=== PATIENT | female | born 1940 | race African-American/Black ===

== ENCOUNTER 2016-12-05 14:23 | Outpatient (CLI) | payer OTHER ==
[2016-12-05 14:33] LABS: BASOPHILS % (AUTO) 0.5 % (0.0-3.0); EOSINOPHILS # (AUTO) 0.3 K/ul (0.0-0.7); EOSINOPHILS % (AUTO) 3.2 % (0.0-7.0); HEMATOCRIT 22.9 % (37.0-47.0); HEMOGLOBIN 7.2 g/dl (12.0-16.0); IMMATURE GRANULOCYTE % (AUTO) 0.7 % (0.0-5.0); LYMPHOCYTES # (AUTO) 1.2 K/uL (0.60-3.4); LYMPHOCYTES % (AUTO) 14.8 (10.0-50.0); MEAN CORPUSCULAR HEMOGLOBIN 27.7 pg (27.0-31.0); MEAN CORPUSCULAR HGB CONC 31.4 (31.8-35.4); MEAN CORPUSCULAR VOLUME 88.1 fl (81.0-99.0); MONOCYTES # (AUTO) 0.8 K/uL (0.4-2.0); MONOCYTES % (AUTO) 10.2 (0-10); NEUTROPHILS # (AUTO) 5.8 K/ul (2.0-6.9); NEUTROPHILS % (AUTO) 70.6; PLATELET COUNT 217 10^3/uL (140-440); WHITE BLOOD COUNT 8.25 K/ul (4.6-10.2)
[2016-12-05 14:47] LABS: ALBUMIN 1.8 g/dL (3.4-5.0); ALBUMIN/GLOBULIN RATIO 0.43; ANION GAP 13.4; BILIRUBIN,TOTAL 0.3 mg/dL (0.00-1.20); BUN/CREATININE RATIO 20.81; CALCIUM 8.4 mg/dL (8.2-10.2); CREATININE 1.97 mg/dL (0.60-1.30); POTASSIUM 4.4 mmol/L (3.5-5.10)
== END 2016-12-05 14:24 | disposition home or self-care (01) ==
LOC: LAB 14:23
PROVIDERS: ATTEND Emergency Medicine
DX: L08.9 Local infection of the skin and subcutaneous tissue, unspecified (principal); E86.0 Dehydration
CPT/HCPCS: 36415; 80053; 85025

== ENCOUNTER 2016-12-11 11:43 | Inpatient (IN) ==
[2016-12-11] MEDS ORDERED: NORCO 10-325 PO STA (12:17)
[2016-12-11 12:49] LABS: BASOPHILS # (AUTO) 0.1 K/uL (0-0.2); BASOPHILS % (AUTO) 0.7 % (0.0-3.0); EOSINOPHILS # (AUTO) 0.2 K/ul (0.0-0.7); HEMOGLOBIN 7.3 g/dl (12.0-16.0); IMMATURE GRANULOCYTE % (AUTO) 1.1 % (0.0-5.0); LYMPHOCYTES # (AUTO) 1.3 K/uL (0.60-3.4); LYMPHOCYTES % (AUTO) 17.6 (10.0-50.0); MEAN CORPUSCULAR HEMOGLOBIN 27.5 pg (27.0-31.0); MEAN CORPUSCULAR HGB CONC 31.7 (31.8-35.4); MEAN CORPUSCULAR VOLUME 86.8 fl (81.0-99.0); MONOCYTES # (AUTO) 0.7 K/uL (0.4-2.0); MONOCYTES % (AUTO) 10.1 (0-10); NEUTROPHILS # (AUTO) 4.9 K/ul (2.0-6.9); NEUTROPHILS % (AUTO) 67.5; PLATELET COUNT 275 10^3/uL (140-440); RED BLOOD COUNT 2.65 10^6/ul (4.20-5.40); WHITE BLOOD COUNT 7.31 K/ul (4.6-10.2)
--- NOTE | 2016-12-11 12:54 | DI ---
EXAM: Single view of the chest. History: Cough. Comparison: Chest radiograph 10/22/2016 Findings: Heart is enlarged. Pacer device. No pneumothorax. Probable small bilateral pleural effu sions. No overt pulmonary edema. No acute osseous abnormalities. Impression: Cardiomegaly without overt pulmonary edema. Probable small bilateral pleural effusions
--- NOTE | 2016-12-11 12:59 | CT ---
EXAM: CT scan of the abdomen and pelvis without contrast HISTORY: Pain TECHNIQUE: Imaging of the abdomen and pelvis was performed without contrast. 5 mm thin axial images and coronal and sagittal reconstructions were provided for interpretation. Comparison 08/29/2009. FINDINGS: Small gallstones are seen. The liver, spleen, pancreas, adrenal glands and kidneys appear normal. The proximal ureters are normal size. The small and large bowel loops are normal caliber. No retroperitoneal abnormalities are seen. Scattered diverticula are seen within the sigmoid colon w ithout acute inflammation. Postoperative changes are seen within the midline anterior abdominal wall. The helical images obtained through the pelvis demonstrate a normal appearance of the rectum, urinary bladder. There is no free fluid seen within the pelvis. The appendix was not seen. No definite in flammatory changes are seen in the right lower quadrant of the abdomen. There is a large amount of e josy seen within the soft tissues of the flank and abdominal wall. Bilateral pleural effusions are s een. No lytic or blastic lesions are seen within the osseous structures. IMPRESSION: No evidence for bowel obstruction or acute inflammatory change seen within the abdomen a nd pelvis. Mild diverticular disease of the sigmoid colon without acute inflammation. Anasarca. Cholelithiasis. Small bilateral pleural effusions.
[2016-12-11 13:14] LABS: PARTIAL THROMBOPLASTIN TIME 25.2 SEC (23.9-40.0)
[2016-12-11 13:29] LABS: ALBUMIN/GLOBULIN RATIO 0.43; ANION GAP 11.2; BILIRUBIN,TOTAL 0.32 mg/dL (0.00-1.20); BUN/CREATININE RATIO 30.05; CALCIUM 8.6 mg/dL (8.2-10.2); CREATININE 1.73 mg/dL (0.60-1.30); POTASSIUM 4.2 mmol/L (3.5-5.10); TOTAL PROTEIN 6.7 g/dL (5.8-8.1); TROPONIN I 0.064 ng/ml (0.0000-0.4000)
--- NOTE | 2016-12-11 14:12 | ED.PDOC ---
General ED Provider: Dr. ELAINE CARVALHO Chief Complaint: Abnormal Labs Stated Complaint: abnormal out pt labs Time Seen by Physician: 12:00 (in ED FOR ABNORMAL H/H) Mode of Arrival: Ambulance Information Source: Long Term, EMT Exam Limitations: No limitations Primary Care Provider: ERIC LEZAMA Referred to ED by: Other (ON WOUND TX BILATERAL LOWER LEG) Nursing and Triage Documentation Reviewed and Agree: Yes (NO PAIN NO DISCOMFORT OFFERED NO COMPLAINT,) Miscellaneous Complaint Exam - Complex/Multi-System Complaint/Exam Onset/Duration: THIS PT IS SENT TO ED PER PMD FOR ABORMAL H/H Symptoms Are: Still present (THEY H/H VALUES ARE CONSISTENT WITH OUT VALUES) Episodes Lasting: Weeks (CHRONIC ANEMIA ON LOWER LEG WOUND CARE TX BILATERAL) Initial Severity: Moderate Current Severity: Moderate Location of Pain: NONE Pain Radiates to: N/A Character: N/A Aggravating: N/A Alleviating: N/A Associated Signs and Symptoms: Reports: Weakness. Denies: Decreased responsiveness, Confusion, Agitation, Dizziness, Syncope, Headache, Short of air , Cough, Wheezing, Hemoptysis, Chest pain, Palpitations, Edema, Nausea, Vomiting , Diarrhea, Abdominal pain, Back pain, Dysuria, Hematemesis, Melena, Decreased oral intake, Fever, Diaphoresis, Immunocompromised, Anticoagulation Therapy, Recent medication changes, Indwelling senior medical technologist, Prior MRSA, Prior VRE, Recent trauma, Remote trauma Recent Echo/LV Function: No Respiratory Distress: None JVD Present: No Tachypnea Present: No Stridor Present: No Abdominal Findings: Present: Normal findings Glascow Coma Scale (see protocol): 15 Meningeal Signs Positive: No Focal Weakness: Present: None Focal Sensory Loss: Present: None Gait: Normal Gag Reflex Present: Yes Babinski Sign: Negative Right, Negative Left Joint Swelling Present: No In-Dwelling Device Present: No Differential Diagnosis: Cardiac Ischemia, Metabolic Abnormality Quality Indicators for Cardiac Chest Pain: EKG in 10min. (ANEMIA) Review of Systems - Review Of Systems Constitutional: Reports: No symptoms Eyes: Reports: No symptoms Ears, Nose, Mouth, Throat: Reports: No symptoms Respiratory: Reports: No symptoms Cardiac: Reports: No symptoms GI: Reports: No symptoms : Reports: No symptoms Musculoskeletal: Reports: No symptoms Skin: Reports: No symptoms Neurological: Reports: No symptoms Endocrine: Reports: No symptoms Hematologic/Lymphatic: Reports: No symptoms All Other Systems: Reviewed and Negative Past Medical History - Past Medical History Previously Healthy: Yes Endocrine: Reports: DM 2 Cardiovascular: Reports: Hypertension Respiratory: Reports: None Hematological: Reports: None Gastrointestinal: Reports: None Genitourinary: Reports: None Neuro/Psych: Reports: None Musculoskeletal: Reports: None Cancer: Reports: None Last Menstrual Period: unknown - Surgical History General Surgical History: Reports: None - Family History Family History: Reports: None - Social History Smoking Status: Never smoker Hx Substance Use: No Alcohol Screening: Occasionally Physical Exam - Physical Exam Appearance: Well-appearing Eyes: DIANA, EOMI, Conjunctiva clear ENT: Ears normal, Nose normal, Oropharynx normal Respiratory: Airway patent, Breath sounds clear, Breath sounds equal, Respirations nonlabored Cardiovascular: RRR, Pulses normal, No rub, No murmur GI/: Soft, Nontender, No masses, Bowel sounds normal, No Organomegaly Musculoskeletal: Normal strength, ROM intact, No edema, No calf tenderness Skin: Warm, Dry, Normal color Neurological: Sensation intact, Motor intact, Reflexes intact, Cranial nerves intact, Alert, Oriented Psychiatric: Affect appropriate, Mood appropriate Physician Notification - Case Discussed Physician Notified: PMD Time of Notification: 14:50 (ADMITT ) Admit To: Observation Critical Care Note - Critical Care Note Total Time (mins): 0 Course - Course Hematology/Chemistry: 12/11/16 12:25 12/11/16 12:25 Orders, Labs, Meds: Lab Review 12/11/16 12/11/16 12/11/16 12:25 12:25 12:25 WBC 7.31 RBC 2.65 L Hgb 7.3 L Hct 23.0 L MCV 86.8 MCH 27.5 MCHC 31.7 L RDW Coeff of Vince 14.7 Plt Count 275 Immature Gran % (Auto) 1.1 Neut % (Auto) 67.5 Lymph % (Auto) 17.6 [place] % (Auto) 10.1 H Eos % (Auto) 3.0 Baso % (Auto) 0.7 Immature Gran # (Auto) 0.1 Neut # 4.9 Lymph # 1.3 [place] # 0.7 Eos # 0.2 Baso # 0.1 PT 11.0 INR 1.08 APTT 25.2 Sodium 139 Potassium 4.2 Chloride 107 Carbon Dioxide 25 Anion Gap 11.2 BUN 52 H Creatinine 1.73 H Estimated GFR (MDRD) 35.00 BUN/Creatinine Ratio 30.05 Glucose 190 H Lactic Acid Calcium 8.6 Total Bilirubin 0.32 AST 23 ALT 18 Alkaline Phosphatase 95 Total Creatine Kinase 94 Troponin I 0.0640 Total Protein 6.7 Albumin 2.0 L Globulin 4.7 Albumin/Globulin Ratio 0.43 Procalcitonin TSH 9.487 H Free T4 12/11/16 12/11/16 12/11/16 12:25 12:25 12:25 WBC RBC Hgb Hct MCV MCH MCHC RDW Coeff of Vince Plt Count Immature Gran % (Auto) Neut % (Auto) Lymph % (Auto) [place] % (Auto) Eos % (Auto) Baso % (Auto) Immature Gran # (Auto) Neut # Lymph # [place] # Eos # Baso # PT INR APTT Sodium Potassium Chloride Carbon Dioxide Anion Gap BUN Creatinine Estimated GFR (MDRD) BUN/Creatinine Ratio Glucose Lactic Acid 5.6 Calcium Total Bilirubin AST ALT Alkaline Phosphatase Total Creatine Kinase Troponin I Total Protein Albumin Globulin Albumin/Globulin Ratio Procalcitonin < 0.05 TSH Free T4 0.89 Orders Category Date Time Status EKG-(ED ONLY) Stat CARDIO 12/11/16 12:02 Completed BLOOD CULTURE (ED ONLY) Stat LAB 12/11/16 12:25 Received CBC W/ AUTO DIFF Stat LAB 12/11/16 12:25 Completed COMPREHENSIVE METABOLIC PANEL Stat LAB 12/11/16 12:25 Completed CREATINE KINASE Stat LAB 12/11/16 12:25 Completed FREE T4 (FREE THYROXINE) Stat LAB 12/11/16 12:25 Completed LACTIC ACID Stat LAB 12/11/16 12:25 Completed PARTIAL THROMBOPLASTIN TIME Stat LAB 12/11/16 12:25 Completed PROCALCITONIN Stat LAB 12/11/16 12:25 Completed PT WITH INR Stat LAB 12/11/16 12:25 Completed THYROID STIMULATING HORMONE Stat LAB 12/11/16 12:25 Completed TROPONIN I Stat LAB 12/11/16 12:25 Completed URINALYSIS C & S IF INDICATED Stat LAB 12/11/16 12:01 Uncollected CHEST, 1V AP ONLY Stat RADS 12/11/16 12:[address] ABDOMEN/PELVIS WO CONTRAST Stat RADS 12/11/16 12:01 Completed Vital Signs: Temp Pulse Resp BP Pulse Ox 12/11/16 11:46 99.6 F 64 24 177/92 H 96 Departure - Departure Time of Disposition: 15:00 Disposition: PLACED OBSERVATION Discharge Problem: Anemia Qualifiers: Anemia type: unspecified type Qualified Code(s): D64.9 - Anemia, unspecified Renal failure Qualifiers: Acute renal failure type: unspecified Instructions: Chronic Kidney Disease (ED), Anemia (ED) Condition: Good Pt referred to PMD for follow-up: Yes Additional Instructions: Please call your Family Physician as soon as possible to schedule a follow-up appointment. Allergies/Adverse Reactions: Allergies MATT Inhibitors Adverse Reaction (Verified 12/11/16 12:07) Iodinated Contrast- Oral and IV Dye Adverse Reaction (Verified 12/11/16 12:07) Home Medications: Ambulatory Orders Acetaminophen [Tylenol] 1,000 mg PO Q8H PRN 12/11/16 Albuterol Sulfate 0.63 mg IH Q8HR PRN 12/11/16 Amlodipine Besylate [Norvasc] 10 mg PO DAILY 12/11/16 Aspirin [Aspirin EC] 81 mg PO DAILYWM 12/11/16 Calcitriol 0.5 mcg PO DAILY 12/11/16 Carvedilol [Coreg] 25 mg PO DAILY 12/11/16 Cetirizine HCl [Zyrtec] 10 mg PO DAILY 12/11/16 Collagenase Clostridium Hist [Santyl] 1 applic TP QSHIFT 12/11/16 Docusate Sodium 100 mg PO Q12HR PRN 12/11/16 Famotidine 20 mg PO BID 12/11/16 Ferrous Sulfate [Iron] 325 mg PO BID 12/11/16 Fluticasone/Salmeterol 250/50 [Advair 250-50 Diskus] 1 puff IH BID 12/11/16 Folic Acid 1 mg PO DAILY 12/11/16 Gabapentin 300 mg PO BEDTIME 12/11/16 Hydralazine HCl 75 mg PO Q8HR 12/11/16 Hydrocodone/Acetaminophen [Hydrocodon-Acetaminoph 7.5-325] 1 each PO TID Insulin Aspart [Novolog] 100 unit SQ WMHS 12/11/16 Insulin Glargine,Hum.rec.anlog [Lantus] 10 unit SUBCUT BEDTIME 12/11/16 Levothyroxine Sodium [Synthroid] 75 mcg PO QDAC 12/11/16 Mag Hydrox/Al Hydrox/Simeth [Maalox Advanced Suspension] 30 ml PO Q8HR 12/11/16 Menthol/Zinc Oxide [Calmoseptine Ointment] 1 applic TP Q8HR PRN 12/11/16 Multivit, Iron, Min #5, FA [Strovite Forte Caplet] 1 each PO DAILY 12/11/16 Multivitamin with Iron [Multivitamins with Iron] 1 each PO DAILY 12/11/16 Nitroglycerin [Nitrostat] 0.4 mg SL Q5MIN X 3 DOSES PRN 12/11/16 Nystatin [Nystop Powder] 1 applic TP TID PRN 12/11/16 Primidone 50 mg PO BEDTIME 12/11/16 Sodium Bicarbonate 650 mg PO TID 12/11/16 Tamsulosin HCl [Flomax] 0.4 mg PO DAILY 12/11/16
[2016-12-11] MEDS ORDERED: NON-FORMULARY MEDICATION (Nitroglycerin [Nitrostat] 0.4 MG) SL PRN ×22 (14:54)
[2016-12-11] MEDS ORDERED: SODIUM CHLORIDE 1,000 ML IV SCH ×2 (15:00→17:26)
[2016-12-11 15:51] VITALS: BMI 44.8
[2016-12-11] MEDS ORDERED: CALMOSEPTINE OINTMENT TP PRN ×2 (15:52→16:30)
[2016-12-11] MEDS ORDERED: NYSTOP POWDER TP PRN (15:52)
[2016-12-11] MEDS ORDERED: ROCEPHIN ONE (17:49)
[2016-12-11] MEDS ORDERED: NORCO 7.5-325 ONE (17:53)
[2016-12-11] MEDS ORDERED: HUMALOG SUBCUT ONE ×2 (17:55→20:58)
[2016-12-11] MEDS: DUONEB NEB SCH ×2 (17:55→23:04)
[2016-12-11] MEDS: PEPCID PO SCH (17:58)
[2016-12-11] MEDS: ACETAMINOPHEN PO SCH ×2 (17:58→21:18)
[2016-12-11] MEDS ORDERED: SODIUM CHLORIDE 50 ML IV ONE (17:58)
[2016-12-11] MEDS: [UNRECOGNIZED DRUG - OTHER] PO SCH ×2 (17:58→21:18)
[2016-12-11] MEDS: HYDROCODONE PO SCH ×2 (17:58→21:18)
[2016-12-11] MEDS: ROCEPHIN 1 GM in SODIUM CHLORIDE 50 ML IV SCH (17:59)
[2016-12-11] MEDS: INSULIN ASPART 100 UNIT SQ SCH ×2 (17:59→21:15)
[2016-12-11] MEDS: VANCOMYCIN 1 GM in SODIUM CHLORIDE 250 ML IV SCH (19:07)
[2016-12-11 19:16] LABS: BILIRUBIN,URINE Negative (NEGATIVE); KETONES,URINE Negative (NEGATIVE); LEUKOCYTE ESTERASE ,URINE 1+ (NEGATIVE); NITRITE,URINE Negative (NEGATIVE); PH,URINE 5.5 (5-9); PROTEIN,URINE Trace (NEGATIVE); URINE, BLOOD Negative (NEGATIVE)
[2016-12-11 19:20] LABS: ADD URINE MICROSCOPIC YES
[2016-12-11] MEDS ORDERED: FERROUS SULFATE ONE (20:55)
[2016-12-11] MEDS ORDERED: APRESOLINE ONE (20:55)
[2016-12-11] MEDS ORDERED: ADVAIR 250-50 DISKUS IH SCH (21:00)
[2016-12-11] MEDS ORDERED: NON-FORMULARY MEDICATION (Ferrous Sulfate [Iron] 325 MG) PO SCH ×22 (21:00)
[2016-12-11] MEDS ORDERED: NEURONTIN PO SCH (21:00)
[2016-12-11] MEDS: LANTUS SUBCUT SCH (21:15)
[2016-12-11] MEDS: HYDRALAZINE HCL 75 MG PO SCH (21:19)
[2016-12-11 21:34] LABS: TROPONIN I 0.051 ng/ml (0.0000-0.4000)
[2016-12-11] MEDS ORDERED: DEXTROSE 50% ONE (22:49)
[2016-12-11] MEDS ORDERED: WATER ONE (22:49)
[2016-12-11] MEDS ORDERED: DEXTROSE 50%-WATER ABBOJECT IVP STA (22:50)
[2016-12-11] MEDS: MORPHINE 2 MG/ML SYRINGE IVP PRN (22:57)
[2016-12-11] MEDS: DEXTROSE 5%-NS IV SOLUTION 1,000 ML IV SCH (23:24)
[2016-12-12] MEDS ORDERED: DEXTROSE 50%-WATER ABBOJECT IVP STA ×6 (00:15→05:57)
[2016-12-12] MEDS ORDERED: DEXTROSE 50% ONE ×4 (00:19→05:59)
[2016-12-12] MEDS ORDERED: WATER ONE ×4 (00:19→05:59)
[2016-12-12] MEDS: DUONEB NEB SCH ×4 (04:49→22:46)
[2016-12-12 05:06] LABS: BASOPHILS % (AUTO) 0.6 % (0.0-3.0); EOSINOPHILS # (AUTO) 0.2 K/ul (0.0-0.7); EOSINOPHILS % (AUTO) 3.3 % (0.0-7.0); HEMATOCRIT 21.3 % (37.0-47.0); HEMOGLOBIN 6.7 g/dl (12.0-16.0); LYMPHOCYTES # (AUTO) 1.2 K/uL (0.60-3.4); MEAN CORPUSCULAR HEMOGLOBIN 27.9 pg (27.0-31.0); MEAN CORPUSCULAR HGB CONC 31.5 (31.8-35.4); MEAN CORPUSCULAR VOLUME 88.8 fl (81.0-99.0); MONOCYTES # (AUTO) 0.9 K/uL (0.4-2.0); MONOCYTES % (AUTO) 12.2 (0-10); NEUTROPHILS # (AUTO) 4.9 K/ul (2.0-6.9); NEUTROPHILS % (AUTO) 66.9; PLATELET COUNT 240 10^3/uL (140-440); WHITE BLOOD COUNT 7.27 K/ul (4.6-10.2)
[2016-12-12 05:28] LABS: ALBUMIN 1.9 g/dL (3.4-5.0); ALBUMIN/GLOBULIN RATIO 0.45; ANION GAP 11.5; BILIRUBIN,TOTAL 0.24 mg/dL (0.00-1.20); BUN/CREATININE RATIO 28.65; CALCIUM 8.3 mg/dL (8.2-10.2); CREATININE 1.71 mg/dL (0.60-1.30); POTASSIUM 4.5 mmol/L (3.5-5.10); TOTAL PROTEIN 6.1 g/dL (5.8-8.1)
[2016-12-12 05:36] LABS: TROPONIN I 0.063 ng/ml (0.0000-0.4000)
[2016-12-12] MEDS ORDERED: APRESOLINE ONE (05:48)
[2016-12-12] MEDS ORDERED: SYNTHROID ONE (05:51)
[2016-12-12] MEDS: HYDRALAZINE HCL 75 MG PO SCH (05:56)
[2016-12-12] MEDS: PEPCID PO SCH ×2 (05:56→19:38)
[2016-12-12 06:20] LABS: IMMATURE RETIC FRACTION 25.3; RETICULOCYTE % 2.23 %
[2016-12-12] MEDS ORDERED: CALMOSEPTINE OINTMENT TP PRN (06:30)
[2016-12-12] MEDS ORDERED: NON-FORMULARY MEDICATION (Levothyroxine Sodium [Synthroid] 75 MCG) PO SCH ×22 (06:30)
[2016-12-12] MEDS ORDERED: NITROSTAT SL PRN (06:42)
[2016-12-12] MEDS ORDERED: NYSTOP POWDER TP PRN (07:00)
[2016-12-12 07:07] LABS: FERRITIN 362.18 ng/mL (4.63-204.00); FOLATE 19.5 ng/mL (3.1-20.5)
[2016-12-12] MEDS ORDERED: NON-FORMULARY MEDICATION (Carvedilol [Coreg] 25 MG) PO SCH ×22 (08:00)
[2016-12-12] MEDS: MORPHINE 2 MG/ML SYRINGE IVP PRN ×4 (08:02→23:28)
[2016-12-12] MEDS: ROCEPHIN 1 GM in SODIUM CHLORIDE 50 ML IV SCH (08:07)
[2016-12-12] MEDS: ASPIRIN EC PO SCH (08:15)
[2016-12-12] MEDS: ADVAIR 250-50 DISKUS IH SCH ×2 (08:16→20:30)
[2016-12-12] MEDS: VANCOMYCIN 1 GM in SODIUM CHLORIDE 250 ML IV SCH (08:39)
[2016-12-12] MEDS ORDERED: NON-FORMULARY MEDICATION (Amlodipine Besylate [Norvasc] 10 MG) PO SCH ×22 (09:00)
[2016-12-12] MEDS ORDERED: NON-FORMULARY MEDICATION (Tamsulosin Hcl [Flomax] 0.4 MG) PO SCH ×21 (09:00)
[2016-12-12] MEDS: NORCO 7.5-325 PO SCH ×3 (10:42→20:28)
[2016-12-12] MEDS: COREG PO SCH (11:21)
[2016-12-12] MEDS: FERROUS SULFATE PO SCH ×2 (11:21→20:28)
[2016-12-12] MEDS: FLOMAX PO SCH (11:22)
[2016-12-12] MEDS: NORVASC PO SCH (11:22)
[2016-12-12] MEDS: APRESOLINE PO SCH ×2 (13:48→20:27)
--- NOTE | 2016-12-12 15:54 | ED.PDOC ---
Procedures - IV/Art Line Insertion Location: Rt hand Type of Line: Peripheral IV Invasive Line/IV Catheter Gauge: 22 Number of Attempts: 2 Blood Return Positive: Yes Invasive Line/IV Flushes Without Difficulty: Yes Conscious Sedation - Pre-op Assessment Weight: 245 lb Surgical History: urine retention, pacemaker/defib, - Medical History Past Medical History: Hypertension, Diabetes, Thyroid, Anemia, Asthma, Kidney Disease, CAD Other History: bilat lower leg ulcers, confusion,
[2016-12-12] MEDS ORDERED: LASIX IVP STA (19:48)
[2016-12-12] MEDS: LANTUS SUBCUT SCH (20:27)
[2016-12-12] MEDS: NEURONTIN PO SCH (20:32)
[2016-12-13] MEDS: DUONEB NEB SCH ×4 (04:53→22:33)
[2016-12-13] MEDS: APRESOLINE PO SCH ×3 (05:59→22:01)
[2016-12-13] MEDS: SYNTHROID PO SCH (06:00)
[2016-12-13] MEDS: PEPCID PO SCH ×2 (06:00→16:58)
[2016-12-13 06:11] LABS: BASOPHILS # (AUTO) 0.1 K/uL (0-0.2); BASOPHILS % (AUTO) 0.5 % (0.0-3.0); EOSINOPHILS # (AUTO) 0.5 K/ul (0.0-0.7); HEMATOCRIT 29.1 % (37.0-47.0); HEMOGLOBIN 9.4 g/dl (12.0-16.0); IMMATURE GRANULOCYTE % (AUTO) 1.7 % (0.0-5.0); LYMPHOCYTES # (AUTO) 1.1 K/uL (0.60-3.4); LYMPHOCYTES % (AUTO) 11.8 (10.0-50.0); MEAN CORPUSCULAR HEMOGLOBIN 27.9 pg (27.0-31.0); MEAN CORPUSCULAR HGB CONC 32.3 (31.8-35.4); MEAN CORPUSCULAR VOLUME 86.4 fl (81.0-99.0); MONOCYTES # (AUTO) 0.9 K/uL (0.4-2.0); MONOCYTES % (AUTO) 9.2 (0-10); NEUTROPHILS # (AUTO) 6.9 K/ul (2.0-6.9); NEUTROPHILS % (AUTO) 71.8; PLATELET COUNT 275 10^3/uL (140-440); RED BLOOD COUNT 3.37 10^6/ul (4.20-5.40); WHITE BLOOD COUNT 9.55 K/ul (4.6-10.2)
[2016-12-13 06:36] LABS: ALBUMIN 2.1 g/dL (3.4-5.0); ALBUMIN/GLOBULIN RATIO 0.51; ANION GAP 10.3; BILIRUBIN,TOTAL 0.4 mg/dL (0.00-1.20); BUN/CREATININE RATIO 27.58; CALCIUM 8.2 mg/dL (8.2-10.2); CREATININE 1.74 mg/dL (0.60-1.30); POTASSIUM 4.3 mmol/L (3.5-5.10); TOTAL PROTEIN 6.2 g/dL (5.8-8.1)
[2016-12-13] MEDS: NORVASC PO SCH (08:49)
[2016-12-13] MEDS: ROCEPHIN 1 GM in SODIUM CHLORIDE 50 ML IV SCH (08:49)
[2016-12-13] MEDS: ASPIRIN EC PO SCH (08:49)
[2016-12-13] MEDS: COREG PO SCH (08:49)
[2016-12-13] MEDS: FERROUS SULFATE PO SCH ×2 (08:49→22:02)
[2016-12-13] MEDS: NORCO 7.5-325 PO SCH ×3 (08:49→22:01)
[2016-12-13] MEDS: FLOMAX PO SCH (08:49)
[2016-12-13] MEDS: ADVAIR 250-50 DISKUS IH SCH ×2 (08:50→22:07)
[2016-12-13] MEDS: VANCOMYCIN 1 GM in SODIUM CHLORIDE 250 ML IV SCH (10:06)
[2016-12-13] MEDS: HUMALOG SUBCUT PRN (18:04)
[2016-12-13] MEDS: SODIUM CHLORIDE 1,000 ML IV SCH (18:14)
[2016-12-13] MEDS: DEXTROSE 5%-NS IV SOLUTION 1,000 ML IV SCH (18:15)
[2016-12-13] MEDS ORDERED: SODIUM CHLORIDE IV SCH (21:00)
[2016-12-13] MEDS ORDERED: MAXIPIME IV SCH (21:00)
[2016-12-13] MEDS: LANTUS SUBCUT SCH (22:00)
[2016-12-13] MEDS: NEURONTIN PO SCH ×2 (22:03→22:07)
[2016-12-13] MEDS: MAXIPIME 2 GM in SODIUM CHLORIDE 100 ML IV SCH (22:41)
[2016-12-14] MEDS: MORPHINE 2 MG/ML SYRINGE IVP PRN (00:34)
[2016-12-14] MEDS: DUONEB NEB SCH ×4 (04:53→23:42)
[2016-12-14 05:29] LABS: BASOPHILS # (AUTO) 0.1 K/uL (0-0.2); BASOPHILS % (AUTO) 0.6 % (0.0-3.0); EOSINOPHILS # (AUTO) 0.5 K/ul (0.0-0.7); EOSINOPHILS % (AUTO) 6.2 % (0.0-7.0); HEMATOCRIT 28.8 % (37.0-47.0); IMMATURE GRANULOCYTE % (AUTO) 0.6 % (0.0-5.0); LYMPHOCYTES # (AUTO) 1.2 K/uL (0.60-3.4); LYMPHOCYTES % (AUTO) 15.3 (10.0-50.0); MEAN CORPUSCULAR HEMOGLOBIN 27.6 pg (27.0-31.0); MEAN CORPUSCULAR HGB CONC 31.3 (31.8-35.4); MEAN CORPUSCULAR VOLUME 88.3 fl (81.0-99.0); MONOCYTES # (AUTO) 0.9 K/uL (0.4-2.0); NEUTROPHILS # (AUTO) 5.1 K/ul (2.0-6.9); NEUTROPHILS % (AUTO) 66.3; PLATELET COUNT 186 10^3/uL (140-440); RED BLOOD COUNT 3.26 10^6/ul (4.20-5.40); WHITE BLOOD COUNT 7.73 K/ul (4.6-10.2)
[2016-12-14 06:01] LABS: ALBUMIN 1.9 g/dL (3.4-5.0); ALBUMIN/GLOBULIN RATIO 0.4; ANION GAP 13.6; BILIRUBIN,TOTAL 0.27 mg/dL (0.00-1.20); BUN/CREATININE RATIO 26.13; CALCIUM 8.7 mg/dL (8.2-10.2); CREATININE 1.76 mg/dL (0.60-1.30); POTASSIUM 4.6 mmol/L (3.5-5.10); TOTAL PROTEIN 6.7 g/dL (5.8-8.1)
[2016-12-14] MEDS: SYNTHROID PO SCH (06:28)
[2016-12-14] MEDS: PEPCID PO SCH ×2 (06:28→17:03)
[2016-12-14] MEDS: APRESOLINE PO SCH ×3 (06:29→21:10)
[2016-12-14] MEDS ORDERED: MAXIPIME IV ONE ×3 (08:18→21:10)
[2016-12-14] MEDS: FLOMAX PO SCH (08:43)
[2016-12-14] MEDS: NORVASC PO SCH (08:43)
[2016-12-14] MEDS: ASPIRIN EC PO SCH (08:44)
[2016-12-14] MEDS: ADVAIR 250-50 DISKUS IH SCH ×2 (08:44→21:15)
[2016-12-14] MEDS: MAXIPIME 2 GM in SODIUM CHLORIDE 100 ML IV SCH ×2 (08:44→21:10)
[2016-12-14] MEDS: FERROUS SULFATE PO SCH ×2 (08:44→21:11)
[2016-12-14] MEDS: COREG PO SCH (08:44)
[2016-12-14] MEDS: NORCO 7.5-325 PO SCH ×3 (08:47→21:15)
[2016-12-14] MEDS: ROCEPHIN 1 GM in SODIUM CHLORIDE 50 ML IV SCH (09:40)
[2016-12-14] MEDS: HUMALOG SUBCUT PRN ×2 (12:12→17:15)
--- NOTE | 2016-12-14 12:57 | HP ---
DATE OF SERVICE: 12/11/16 CHIEF COMPLAINT/HISTORY OF PRESENT ILLNESS: The patient was sent [facility] for the change in mental status and abnormal labs and the decreased hgb. The patient is seen and examined by Dr. Zapata in the emergency room. Hgb is 7.3 and was sent here. The patient has a gross defused lower extremity cellulitis. Repeat hgb is 7.3. BUN 52, creatinine 1.72. At that time the patient is admitted to the hospital for evaluation of the acute on chronic renal failure, anemia and lower extremity wounds. REVIEW OF SYSTEMS: CONSTITUTIONAL: No fever, no chills. Weakness and tiredness. HEENT: Normal. ENDOCRINE: No weight gain; no weight loss. CVS: No chest pain. No PND, no orthopnea. Shortness of breath. No PND, no orthopnea. RESPIRATORY: No cough, no congestion. No hemoptysis. GI: No nausea, no vomiting. No abdominal pain. No melena. : No hematuria. No polyuria. MUSCULOSKELETAL: No joint swelling. Pain PSYCHIATRIC: Not anxious. No depression. No suicidal thoughts. No homicidal thoughts. SKIN: Intact, no open lesions. PAST MEDICAL HISTORY: Coronary artery disease Congestive heart failure Peripheral vascular disease Permanent pacemaker Dyslipidemia Hypertension Dependant edema Alzheimer's Dementia Osteoarthritis Rheumatoid arthritis Diabetes Hypothyroidism Depression Chronic renal failure PAST SURGICAL HISTORY: Permanent pacemaker PERSONAL HISTORY: The patient does not smoke or drink alcohol. The patient is dependant upon the ADL's. Family history is unknown. MEDICATIONS: Sodium bicarbonate Collagenase Primidone Nystatin Nitroglycerin Magnesium oxide Insulin Hydrocodone Hydralazine Gabapentin Folic acid Famotidine Docusate Coreg Aspirin Amlodipine Fluticasone Tylenol Insulin Cetirizine Levothyroxine Ferrous Sulfate Tamsulosin Multivitamin Albuterol ALLERGIES: MATT inhibitors Iodinated contrast- Oral and IV dye PHYSICAL EXAMINATION: V/S: Blood pressure 177/92, respiratory rate 24, heart rate 64, temperature 99.6 with saturation 96 on the room air. HEENT: Atraumatic, normocephalic. No scleral icterus. Mucosa dry. NECK: Supple. No JVD, no bruit. No lymphadenopathy. No thyromegaly. HEART: S1, S2 normal. No murmur. No cyanosis or clubbing. No ascites. LUNGS: Decreased and clear to auscultation. No rales or rhonchi. ABDOMEN: Soft, nontender. Bowel sounds are active. No CVA tenderness. No rigidity or guarding. EXTREMITIES: No cyanosis, clubbing. Bilateral leg swelling and multiple vascular wounds are present which are foul smelling. MUSCULOSKELETAL: Normal joints, no swelling. NEUROLOGIC: The patient is SKIN: Intact; no open lesions. LYMPHATIC: No lymph nodes palpable. LABS: Sodium 139, potassium 4.2, chloride 107, Bicarb 25, BUN 52, creatinine 1.79, hgb 7.3, hct 23.0, plt count 275, WBC 7.1. ASSESSMENT: 1. Anemia, rule out GI Bleed PLAN: 1. Will get U/A 2. Continue the medication 3. Wound Care 4. Wet to dry dressing 5. Accu-checks with coverage 6. Will start the patient on Vancomycin and Rocephin 7. Anemia profile 8. Stool for occult blood test 9. Type and cross match two units and hold 10.No DVT prophylaxis on review of anemia TIME SPENT: MORE THAN 35 minutes MTDD
--- NOTE | 2016-12-14 13:10 | PN ---
DATE OF SERVICE: 12/12/16 SUBJECTIVE: The patient had a complicated history overnight. Nurses by med EQ works ended up giving 100 units of Lispro ever since her sugars were dropping to 37,45 and 40' s. We kept giving the D50 all night with Nurse Inge. Finally the sugars are 120 and 110. Right now the patient is on hold from all the insulin. Hgb dropped from 7.3 to 6.7. Started and typed and cross matched two units and two units been transfused. REVIEW OF SYSTEMS: CONSTITUTIONAL: No fever, no chills. HEENT: Normal. ENDOCRINE: No weight gain, no weight loss. CVS: No angina symptoms. No CHF symptoms. No palpitations. No atypical chest pain for CAD. No shortness of breath. No PND, no orthopnea. RESPIRATORY: No cough, no hemoptysis. GI: No nausea, no vomiting. No abdominal pain. : No hematuria. No polyuria. MUSCULOSKELETAL:. No joint swelling. PSYCHIATRIC: Not anxious. No depression. No suicidal thoughts. No homicidal thoughts. SKIN: Intact. No rash. PHYSICAL EXAMINATION: V/S: blood pressure 189/97, respiratory rate 20, heart rate 87, temperature 99.2 with saturation 97 on the room air. HEENT: Normocephalic, atraumatic. Mucosa dry. Pallor positive. No icterus. NECK: Supple. No JVD, no carotid bruit. No lymphadenopathy. LUNGS: Decreased and basilar crackled. No rales or rhonchi. HEART: S1, S2 normal. No S3. No murmur, gallop or regurgitation. ABDOMEN: Soft, nontender. Bowel sounds active. No rigidity. No rebound or guarding. No CVA tenderness. EXTREMITIES: No clubbing, cyanosis or pedal edema. lower extremity multiple open wounds, tender to touch and foul smelling. Upper extremity swelling is present. MUSCULOSKELETAL: No joint swelling. NEUROLOGIC: Awake, alert, oriented times three. No focal deficit. LYMPHATIC: No lymph nodes palpable. SKIN: Intact. LABS: Sodium 138, potassium 4.5, chloride 107, bicarb 24, BUN 49, creatinine 1.71, glucose 133, WBC 7.21, hgb 6.7, hct 21.3, plt count 240. ASSESSMENT: 1. Anemia, needed blood transfusion 2. Severe hypoglycemia from med error 3. Bilateral lower extremity cellulitis 4. Chronic kidney disease 5. Anasarca 6. Diabetes 7. Dyslipidemia 8. Peripheral vascular disease 9. Coronary artery disease 10.Congestive heart failure 11.Pacemaker 12.Internal defibrillatory PLAN: 1. Continue the Rocephin 2. Vancomycin 3. D5 at 40ml per hour 4. Accu-checks every two hours 5. No insulins until further orders TIME SPENT: More than 35 minutes which is critical care time. RICARDA
--- NOTE | 2016-12-14 13:27 | PN ---
DATE OF SERVICE: 12/13/16 SUBJECTIVE: The patient admitted with the bilateral lower extremity wound and anemia for which the patient got the two units of the blood transfusion. Hgb is steady at 9.4 now. Pain is somewhat better in lower extremities with pain medication. Wound did grow Pseudomonas Aeruginosa and sensitive to the Cefepime not the Rocephin we will changing the antibiotics today. REVIEW OF SYSTEMS: CONSTITUTIONAL: No fever, no chills. HEENT: Normal. ENDOCRINE: No weight gain, no weight loss. CVS: No angina symptoms. No CHF symptoms. No palpitations. No atypical chest pain for CAD. No shortness of breath. No PND, no orthopnea. RESPIRATORY: No cough, no hemoptysis. GI: No nausea, no vomiting. No abdominal pain. : No hematuria. No polyuria. MUSCULOSKELETAL:. No joint swelling. PSYCHIATRIC: Not anxious. No depression. No suicidal thoughts. No homicidal thoughts. SKIN: Intact. No rash. PHYSICAL EXAMINATION: V/S: Blood pressure 149/83, respiratory rate 18, heart rate 75, temperature 98.6 with saturation 92% on the room air. HEENT: Normocephalic, atraumatic. Mucosa dry. NECK: Supple. No JVD, no carotid bruit. No lymphadenopathy. LUNGS: Bilateral entry is decreased and basilar crackles. No rales or rhonchi. HEART: S1, S2 normal. No S3. No murmur, gallop or regurgitation. ABDOMEN: Soft, nontender. Bowel sounds active. No rigidity. No rebound or guarding. No CVA tenderness. EXTREMITIES: No clubbing, cyanosis or pedal edema. Bilateral lower extremity defused multiple open wounds are present, foul smelling. MUSCULOSKELETAL: No joint swelling. NEUROLOGIC: Awake, alert, oriented times three. No focal deficit. LYMPHATIC: No lymph nodes palpable. SKIN: Intact. LABS: Sodium 135, potassium 4.3, chloride 107, bicarb 22, BUN 48, creatinine 1.74, WBC 9.55, hgb 9.4, hct 29.1, plt count 275. ASSESSMENT: 1. Bilateral lower extremity open wounds growing pseudomonas aeruginosa 2. Anemia needing blood transfusion 3. Chronic kidney disease 4. Coronary artery disease 5. Peripheral vascular disease 6. Congestive heart failure 7. Status post ICD placement 8. Dependant edema 9. Alzheimer's Dementia 10.Osteoarthritis 11.Rheumatoid arthritis 12.Depression PLAN: 1. Stop the Rocephin 2. Start the Cefepime 3. Accu-checks with coverage 4. Status post severe hypoglycemia 5. Resume the Lantus 6. Accu-checks with coverage 7. The patient is eating good. TIME SPENT: More than 30 minutes MTDD
[2016-12-14] MEDS: NEURONTIN PO SCH (21:12)
[2016-12-14] MEDS: LANTUS SUBCUT SCH (21:15)
[2016-12-15] MEDS: DUONEB NEB SCH ×4 (05:09→23:43)
[2016-12-15 05:19] LABS: BASOPHILS % (AUTO) 0.4 % (0.0-3.0); EOSINOPHILS # (AUTO) 0.5 K/ul (0.0-0.7); HEMATOCRIT 28.3 % (37.0-47.0); HEMOGLOBIN 9.1 g/dl (12.0-16.0); IMMATURE GRANULOCYTE % (AUTO) 0.9 % (0.0-5.0); LYMPHOCYTES # (AUTO) 1.2 K/uL (0.60-3.4); LYMPHOCYTES % (AUTO) 13.5 (10.0-50.0); MEAN CORPUSCULAR HEMOGLOBIN 27.9 pg (27.0-31.0); MEAN CORPUSCULAR HGB CONC 32.2 (31.8-35.4); MEAN CORPUSCULAR VOLUME 86.8 fl (81.0-99.0); MONOCYTES # (AUTO) 0.8 K/uL (0.4-2.0); MONOCYTES % (AUTO) 9.3 (0-10); NEUTROPHILS # (AUTO) 6.4 K/ul (2.0-6.9); NEUTROPHILS % (AUTO) 70.9; PLATELET COUNT 229 10^3/uL (140-440); RED BLOOD COUNT 3.26 10^6/ul (4.20-5.40); WHITE BLOOD COUNT 9.05 K/ul (4.6-10.2)
[2016-12-15 05:42] LABS: ALBUMIN 1.8 g/dL (3.4-5.0); ALBUMIN/GLOBULIN RATIO 0.38; ANION GAP 11.6; BILIRUBIN,TOTAL 0.2 mg/dL (0.00-1.20); BUN/CREATININE RATIO 25.69; CALCIUM 8.7 mg/dL (8.2-10.2); CREATININE 1.79 mg/dL (0.60-1.30); POTASSIUM 4.6 mmol/L (3.5-5.10); TOTAL PROTEIN 6.5 g/dL (5.8-8.1)
[2016-12-15] MEDS: PEPCID PO SCH ×2 (06:17→16:50)
[2016-12-15] MEDS: SODIUM CHLORIDE 1,000 ML IV SCH (06:17)
[2016-12-15] MEDS: APRESOLINE PO SCH ×3 (06:18→21:45)
[2016-12-15] MEDS: SYNTHROID PO SCH (06:18)
[2016-12-15] MEDS: ADVAIR 250-50 DISKUS IH SCH ×2 (08:08→21:44)
[2016-12-15] MEDS: NORCO 7.5-325 PO SCH ×3 (08:09→21:44)
[2016-12-15] MEDS: FLOMAX PO SCH (08:09)
[2016-12-15] MEDS: ASPIRIN EC PO SCH (08:09)
[2016-12-15] MEDS: COREG PO SCH (08:09)
[2016-12-15] MEDS: FERROUS SULFATE PO SCH ×2 (08:09→21:45)
[2016-12-15] MEDS: NORVASC PO SCH (08:09)
[2016-12-15] MEDS: MAXIPIME 2 GM in SODIUM CHLORIDE 100 ML IV SCH ×2 (08:18→21:43)
[2016-12-15] MEDS ORDERED: MAXIPIME IV ONE ×2 (08:18→21:43)
[2016-12-15] MEDS: HUMALOG SUBCUT PRN ×2 (12:37→16:54)
[2016-12-15] MEDS: LANTUS SUBCUT SCH (21:44)
[2016-12-15] MEDS: NEURONTIN PO SCH (21:45)
[2016-12-16] MEDS: DUONEB NEB SCH ×4 (05:04→22:46)
[2016-12-16 05:33] LABS: BASOPHILS # (AUTO) 0.1 K/uL (0-0.2); BASOPHILS % (AUTO) 0.8 % (0.0-3.0); EOSINOPHILS # (AUTO) 0.4 K/ul (0.0-0.7); EOSINOPHILS % (AUTO) 5.4 % (0.0-7.0); HEMATOCRIT 27.7 % (37.0-47.0); HEMOGLOBIN 8.9 g/dl (12.0-16.0); IMMATURE GRANULOCYTE % (AUTO) 0.6 % (0.0-5.0); LYMPHOCYTES # (AUTO) 1.2 K/uL (0.60-3.4); LYMPHOCYTES % (AUTO) 15.9 (10.0-50.0); MEAN CORPUSCULAR HEMOGLOBIN 27.9 pg (27.0-31.0); MEAN CORPUSCULAR HGB CONC 32.1 (31.8-35.4); MEAN CORPUSCULAR VOLUME 86.8 fl (81.0-99.0); MONOCYTES # (AUTO) 0.9 K/uL (0.4-2.0); MONOCYTES % (AUTO) 11.4 (0-10); NEUTROPHILS # (AUTO) 5.1 K/ul (2.0-6.9); NEUTROPHILS % (AUTO) 65.9; PLATELET COUNT 214 10^3/uL (140-440); RED BLOOD COUNT 3.19 10^6/ul (4.20-5.40); WHITE BLOOD COUNT 7.72 K/ul (4.6-10.2)
[2016-12-16] MEDS: APRESOLINE PO SCH ×3 (05:51→20:36)
[2016-12-16] MEDS: SYNTHROID PO SCH (05:51)
[2016-12-16] MEDS: PEPCID PO SCH ×2 (05:51→16:41)
[2016-12-16 06:09] LABS: ALBUMIN 1.9 g/dL (3.4-5.0); ALBUMIN/GLOBULIN RATIO 0.4; ANION GAP 11.5; BILIRUBIN,TOTAL 0.27 mg/dL (0.00-1.20); BUN/CREATININE RATIO 27.16; CALCIUM 8.9 mg/dL (8.2-10.2); CREATININE 1.62 mg/dL (0.60-1.30); POTASSIUM 4.5 mmol/L (3.5-5.10); TOTAL PROTEIN 6.6 g/dL (5.8-8.1)
--- NOTE | 2016-12-16 07:28 | PN ---
DATE OF SERVICE: 12/14/16 SUBJECTIVE: The patient was admitted with the bilateral lower extremity cellulitis and anemia with hgb of 6.7. With her given medical problem of coronary artery disease, Congestive heart failure that patient was given a blood transfusion for medical necessity 2 units which made her hgb to 9.4 and 9.0 today. The patient says that she is still hurting in the lower extremities and pain medications are helping. REVIEW OF SYSTEMS: CONSTITUTIONAL: No fever, no chills. HEENT: Normal. ENDOCRINE: No weight gain, no weight loss. CVS: No angina symptoms. No CHF symptoms. No palpitations. No atypical chest pain for CAD. No shortness of breath. No PND, no orthopnea. RESPIRATORY: No cough, no hemoptysis. GI: No nausea, no vomiting. No abdominal pain. : No hematuria. No polyuria. MUSCULOSKELETAL:. No joint swelling. PSYCHIATRIC: Not anxious. No depression. No suicidal thoughts. No homicidal thoughts. SKIN: Intact. No rash. PHYSICAL EXAMINATION: V/S: Blood pressure 148/62, respiratory rate 16, heart rate 74, temperature 98.1 with saturation 94 on room air. GENERAL: Obese lady laying in the bed and not in any distress. HEENT: Normocephalic, atraumatic. Mucosa dry. Pallor positive. No icterus. NECK: Supple. No JVD, no carotid bruit. No lymphadenopathy. LUNGS: Decreased and some basilar crackles. No rales or rhonchi. HEART: S1, S2 normal. No S3. No murmur, gallop or regurgitation. ABDOMEN: Soft, nontender. Bowel sounds active. No rigidity. No rebound or guarding. No CVA tenderness. EXTREMITIES: No clubbing, cyanosis or pedal edema. Multiple lower extremity open wounds. Not warm to touch, has a smell to it and tender calfs. MUSCULOSKELETAL: No joint swelling. NEUROLOGIC: Awake, alert, sometimes she tells where she is and sometimes she thinks that [facility] is [facility] the [facility]. No focal deficit. LYMPHATIC: No lymph nodes palpable. SKIN: Intact. LABS: WBC 7.73, hgb 9.0, hct 28.8, plt count 186, sodium 136, potassium 4.6, chloride 108, bicarb 19, BUN 46, creatinine 1.76 and glucose 131. ASSESSMENT: 1. Status post hypoglycemia 2. Anemia needing blood transfusion 3. Bilateral lower extremity open wounds with pseudomonas Aeruginosa positive on Cefepime 4. Chronic kidney disease 5. Coronary artery disease 6. Congestive heart failure 7. Hypertension 8. ICD replacement 9. Dyslipidemia 10. Peripheral neuropathy 11.Rheumatoid arthritis 12.Diabetes 13.Depression PLAN: 1. Continue the Cefepime 2. Continue Accu-checks with coverage 3. Morphine 2mg Q 4-6 hours 4. Wet to dry dressing 5. DUO NEBS Will follow the patient in daily rounds. TIME SPENT: More than 35 minutes MTDD
--- NOTE | 2016-12-16 07:37 | PN ---
DATE OF SERVICE: 12/15/16 SUBJECTIVE: The patient was [facility] the [facility] for the anemia and bilateral lower extremity infected wounds. The patient got the blood transfusion and hgb is being steady every since. The patient does have some confusion spells but most of the time she knows where she is and she recognizes the doctor, me. REVIEW OF SYSTEMS: CONSTITUTIONAL: No fever, no chills. HEENT: Normal. ENDOCRINE: No weight gain, no weight loss. CVS: No angina symptoms. No CHF symptoms. No palpitations. No atypical chest pain for CAD. No shortness of breath. No PND, no orthopnea. RESPIRATORY: No cough, no hemoptysis. GI: No nausea, no vomiting. No abdominal pain. : No hematuria. No polyuria. MUSCULOSKELETAL:. No joint swelling. PSYCHIATRIC: Not anxious. No depression. No suicidal thoughts. No homicidal thoughts. SKIN: Intact. No rash. PHYSICAL EXAMINATION: V/S: Blood pressure 138/62, respiratory rate 18, heart rate 93, temperature 98.0. HEENT: Normocephalic, atraumatic. Mucosa dry. Pallor positive. No icterus. NECK: Supple. No JVD, no carotid bruit. No lymphadenopathy. LUNGS: Decreased and basilar crackles. No rales or rhonchi. HEART: S1, S2 normal. No S3. No murmur, gallop or regurgitation. ABDOMEN: Soft, nontender. Bowel sounds active. No rigidity. No rebound or guarding. No CVA tenderness. EXTREMITIES: No clubbing, cyanosis or pedal edema. Multiple open wounds, tender to touch. MUSCULOSKELETAL: No joint swelling. NEUROLOGIC: Awake, alert, with some confusion episodes. No focal deficit. LYMPHATIC: No lymph nodes palpable. SKIN: Intact. LABS: WBC 9.05, hgb 9.1, hct 28.3, plt count 229, sodium 137, potassium 4.6, chloride 109, bicarb 21, BUN 46, creatinine 1.79 ASSESSMENT: 1. Bilateral lower extremity multiple open wounds with pseudomonas infection 2. Anemia needing blood transfusion 3. Chronic kidney disease 4. Diabetes, status post hypoglycemia 5. Coronary artery disease 6. Congestive heart failure 7. Status post ICD 8. Rheumatoid arthritis PLAN: 1. Continue the Cefepime 2. DUO NEBS 3. Daily I&O's 4. Keep the legs elevated 5. Wet to dry dressing. TIME SPENT: More than 35 minutes MTDD
[2016-12-16] MEDS: MAXIPIME 2 GM in SODIUM CHLORIDE 100 ML IV SCH ×2 (08:28→20:36)
[2016-12-16] MEDS ORDERED: MAXIPIME IV ONE ×2 (08:28→20:36)
[2016-12-16] MEDS: ADVAIR 250-50 DISKUS IH SCH ×2 (08:29→20:36)
[2016-12-16] MEDS: NORVASC PO SCH (08:30)
[2016-12-16] MEDS: FLOMAX PO SCH (08:30)
[2016-12-16] MEDS: COREG PO SCH (08:30)
[2016-12-16] MEDS: ASPIRIN EC PO SCH (08:30)
[2016-12-16] MEDS: FERROUS SULFATE PO SCH ×2 (08:30→20:37)
[2016-12-16] MEDS: NORCO 7.5-325 PO SCH ×3 (08:31→20:37)
[2016-12-16] MEDS: MORPHINE 2 MG/ML SYRINGE IVP PRN ×2 (10:18→22:44)
[2016-12-16] MEDS: HUMALOG SUBCUT PRN ×2 (17:12→20:37)
[2016-12-16] MEDS: NEURONTIN PO SCH (20:37)
[2016-12-16] MEDS: LANTUS SUBCUT SCH (20:37)
[2016-12-17] MEDS: DUONEB NEB SCH ×4 (04:53→22:35)
[2016-12-17 05:32] LABS: BASOPHILS % (AUTO) 0.4 % (0.0-3.0); EOSINOPHILS # (AUTO) 0.3 K/ul (0.0-0.7); HEMOGLOBIN 8.4 g/dl (12.0-16.0); IMMATURE GRANULOCYTE % (AUTO) 0.3 % (0.0-5.0); LYMPHOCYTES # (AUTO) 1.1 K/uL (0.60-3.4); LYMPHOCYTES % (AUTO) 15.7 (10.0-50.0); MEAN CORPUSCULAR HEMOGLOBIN 28.3 pg (27.0-31.0); MEAN CORPUSCULAR HGB CONC 32.3 (31.8-35.4); MEAN CORPUSCULAR VOLUME 87.5 fl (81.0-99.0); NEUTROPHILS # (AUTO) 4.4 K/ul (2.0-6.9); NEUTROPHILS % (AUTO) 64.6; PLATELET COUNT 194 10^3/uL (140-440); RED BLOOD COUNT 2.97 10^6/ul (4.20-5.40); WHITE BLOOD COUNT 6.86 K/ul (4.6-10.2)
[2016-12-17 05:51] LABS: ALBUMIN 1.7 g/dL (3.4-5.0); ALBUMIN/GLOBULIN RATIO 0.38; ANION GAP 12.5; BILIRUBIN,TOTAL 0.22 mg/dL (0.00-1.20); BUN/CREATININE RATIO 24.71; CALCIUM 8.7 mg/dL (8.2-10.2); CREATININE 1.74 mg/dL (0.60-1.30); POTASSIUM 4.5 mmol/L (3.5-5.10); TOTAL PROTEIN 6.2 g/dL (5.8-8.1)
[2016-12-17] MEDS: APRESOLINE PO SCH ×3 (06:05→20:46)
[2016-12-17] MEDS: SYNTHROID PO SCH (06:05)
[2016-12-17] MEDS: PEPCID PO SCH ×2 (06:05→17:10)
[2016-12-17] MEDS ORDERED: BUMEX IVP STA (08:24)
[2016-12-17] MEDS ORDERED: MILK OF MAGNESIA PO PRN (08:25)
[2016-12-17] MEDS: MAXIPIME 2 GM in SODIUM CHLORIDE 100 ML IV SCH ×2 (09:00→20:44)
[2016-12-17] MEDS: ADVAIR 250-50 DISKUS IH SCH ×2 (09:00→20:45)
[2016-12-17] MEDS ORDERED: MAXIPIME IV ONE ×2 (09:00→20:44)
[2016-12-17] MEDS: ASPIRIN EC PO SCH (09:01)
[2016-12-17] MEDS: FERROUS SULFATE PO SCH ×2 (09:02→20:46)
[2016-12-17] MEDS: NORCO 7.5-325 PO SCH ×4 (09:02→21:25)
[2016-12-17] MEDS: NORVASC PO SCH (09:02)
[2016-12-17] MEDS: CATAPRES PO SCH ×2 (09:02→20:46)
[2016-12-17] MEDS: COREG PO SCH (09:02)
[2016-12-17] MEDS: FLOMAX PO SCH (09:03)
--- NOTE | 2016-12-17 11:03 | PN ---
DATE OF SERVICE: 12/16/16 SUBJECTIVE: The patient is admitted with bilateral lower extremity wounds, which are very big, 6 to 7 cm on each lower extremity. The patient does not move at all, whole body. The patient's family was concerned and we are also concerned about her. Hemoglobin is stable after 2 units of blood transfusion, 8.9. The patient's family wanted to transfer her to [place] but as there was no medical necessity, ambulance service will not pay so the patient's family decided not to transfer her there. Otherwise, no new complaints at this time. REVIEW OF SYSTEMS: CONSTITUTIONAL: No fever, no chills. HEENT: Normal. ENDOCRINE: No weight gain, no weight loss. CVS: No angina symptoms. No CHF symptoms. No palpitations. No atypical chest pain for CAD. No shortness of breath. No PND, no orthopnea. RESPIRATORY: No cough, no hemoptysis. GI: No nausea, no vomiting. No abdominal pain. : No hematuria. No polyuria. MUSCULOSKELETAL:. No joint swelling. PSYCHIATRIC: Not anxious. No depression. No suicidal thoughts. No homicidal thoughts. SKIN: Lower extremity wounds 6 to 7 cm PHYSICAL EXAMINATION: V/S: BP 124/78, respiratory rate 16, heart rate 77, temperature 98.4, saturation 97. HEENT: Normocephalic, atraumatic. Mucosa dry. Pallor positive. No icterus. NECK: Supple. No JVD, no carotid bruit. No lymphadenopathy. LUNGS: Decreased and clear to auscultation. No rales or rhonchi. HEART: S1, S2 normal. No S3. No murmur, gallop or regurgitation. ABDOMEN: Soft, nontender. Bowel sounds active. No rigidity. No rebound or guarding. No CVA tenderness. EXTREMITIES: Bilateral open wounds bilaterally. No clubbing, cyanosis or pedal edema. MUSCULOSKELETAL: No joint swelling. NEUROLOGIC: Awake, alert. Upper extremity edema is present. No focal deficit. LYMPHATIC: No lymph nodes palpable. SKIN: Intact. LABS: White count 7.72, hemoglobin 8.8, hematocrit 27.7, platelet count 214. Sodium 137, potassium 4.5, chloride 109, bicarb 21, BUN 41, creatinine 1.62. ASSESSMENT: 1. BILATERAL LOWER EXTREMITY OPEN WOUNDS, PSEUDOMONAS AERUGINOSA IS THE ORGANISM 2. ANEMIA NEEDING BLOOD TRANSFUSION 3. STATUS POST BLOOD TRANSFUSION 4. CAD 5. CHF 6. ICD REPLACEMENT PLAN: 1. Wet to dry dressing 2. Possibility discharge back to the snf 3. Duonebs 4. Daily I & O's TIME SPENT: More than 35 minutes RICARDA
[2016-12-17] MEDS: MORPHINE 2 MG/ML SYRINGE IVP PRN (11:16)
[2016-12-17] MEDS: LANTUS SUBCUT SCH (20:46)
[2016-12-17] MEDS: NEURONTIN PO SCH (20:46)
[2016-12-18] MEDS: DUONEB NEB SCH ×4 (04:42→23:19)
[2016-12-18 04:59] LABS: BASOPHILS % (AUTO) 0.5 % (0.0-3.0); EOSINOPHILS # (AUTO) 0.3 K/ul (0.0-0.7); HEMOGLOBIN 8.9 g/dl (12.0-16.0); IMMATURE GRANULOCYTE % (AUTO) 0.6 % (0.0-5.0); MEAN CORPUSCULAR HEMOGLOBIN 27.6 pg (27.0-31.0); MEAN CORPUSCULAR HGB CONC 31.8 (31.8-35.4); MONOCYTES # (AUTO) 0.8 K/uL (0.4-2.0); MONOCYTES % (AUTO) 9.7 (0-10); NEUTROPHILS # (AUTO) 6.1 K/ul (2.0-6.9); NEUTROPHILS % (AUTO) 74.2; PLATELET COUNT 194 10^3/uL (140-440); RED BLOOD COUNT 3.22 10^6/ul (4.20-5.40); WHITE BLOOD COUNT 8.25 K/ul (4.6-10.2)
[2016-12-18 05:21] LABS: ALBUMIN 1.7 g/dL (3.4-5.0); ALBUMIN/GLOBULIN RATIO 0.34; ANION GAP 11.4; BILIRUBIN,TOTAL 0.18 mg/dL (0.00-1.20); BUN/CREATININE RATIO 22.34; CALCIUM 8.9 mg/dL (8.2-10.2); CREATININE 1.88 mg/dL (0.60-1.30); POTASSIUM 4.4 mmol/L (3.5-5.10); TOTAL PROTEIN 6.7 g/dL (5.8-8.1)
[2016-12-18] MEDS: PEPCID PO SCH ×2 (05:38→16:46)
[2016-12-18] MEDS: APRESOLINE PO SCH ×3 (05:38→20:41)
[2016-12-18] MEDS: SYNTHROID PO SCH (05:39)
[2016-12-18] MEDS: COREG PO SCH (08:34)
[2016-12-18] MEDS: CATAPRES PO SCH ×2 (08:34→20:41)
[2016-12-18] MEDS: FERROUS SULFATE PO SCH ×2 (08:34→20:40)
[2016-12-18] MEDS: NORCO 7.5-325 PO SCH ×3 (08:35→20:42)
[2016-12-18] MEDS: MAXIPIME 2 GM in SODIUM CHLORIDE 100 ML IV SCH ×2 (08:35→23:09)
[2016-12-18] MEDS ORDERED: MAXIPIME IV ONE (08:35)
[2016-12-18] MEDS: FLOMAX PO SCH (08:35)
[2016-12-18] MEDS: ADVAIR 250-50 DISKUS IH SCH ×2 (08:35→20:40)
[2016-12-18] MEDS: NORVASC PO SCH (08:35)
[2016-12-18] MEDS: ASPIRIN EC PO SCH (09:04)
[2016-12-18] MEDS ORDERED: DULCOLAX RC STA (11:08)
[2016-12-18] MEDS ORDERED: CHLORASEPTIC SPRAY MM PRN (14:01)
--- NOTE | 2016-12-18 14:51 | CM.DICTOOL ---
ADMISSION: 12/11/16 14:58 DISCHARGE: 12/19/16 DISCHARGE TO [facility] DATE OF SERVICE: 12/19/16 FINAL DIAGNOSIS ANEMIA (2 UNITS PRBC'S 12-12-18) RENAL FAILURE BILATERAL LOWER EXTREMITY VENOUS STASIS WOUNDS BILATERAL WOUND INFECTIONS - PSEUDOMONAS AERUGINOSA CAD PERIPHERAL VASCULAR DISEASE HYPERTENSION DYSLIPIDEMIA DM, TYPE 2 DIABETIC NEUROPATHY THYROID DISEASE ASTHMA CHRONIC KIDNEY DISEASE OBESITY (BMI 44.8) GENERALIZED MUSCLE WEAKNESS GAIT ABNORMALITY URINARY RETENTION DYSLIPIDEMIA ARTHROPATHY AUTOMATED INTERNAL CARDIAC PACEMAKER/DEFIBRILLATOR LAST VITALS Temp Pulse Resp BP Pulse Ox 97.5 F L 86 20 158/76 H 97 12/18/16 13:44 12/18/16 13:44 12/18/16 13:44 12/18/16 13:44 12/18/16 13:44 ACTIVE MEDICATIONS Acetaminophen/Hydrocodone Bitart ([place] 7.5-325) 1 tab PO TID KILEY Albuterol 1 vial NEB RTQ6H KILEY Amlodipine Besylate (Norvasc) 10 mg PO DAILY KILEY Aspirin (Aspirin Ec) 81 mg PO DAILYWM KILEY Calamine/Phenol (Calmoseptine Ointment) 1 applic TP Q8HR PRN PRN Reason: skin barrier Calcitriol 0.5 mcg PO DAILY Carvedilol (Coreg) 25 mg PO BIDWM KILEY Cetirizine HCL (Zyrtec) 10 mg PO DAILY Clonidine (Catapres) 0.2 mg PO BID KILEY (NEW MEDICATION) Docusate Sodium (Colace) 100 mg PO Q12HR PRN Famotidine (Pepcid) 20 mg PO BIDAC KILEY Ferrous Sulfate (Ferrous Sulfate) 324 mg PO BID KILEY Folic Acid 1 mg PO DAILY Gabapentin (Neurontin) 300 mg PO BEDTIME KILEY Hydralazine HCl (Apresoline) 100 mg PO Q8HR KILEY (INCREASED DOSE from 75 mg) Cipro 250 mg Q12HR X 5 DAYS (NEW MEDICATION) Insulin Glargine (Lantus) 10 unit SUBCUT BEDTIME KILEY Insulin Human Lispro (Humalog) 2 - 20 unit SUBCUT PRN PRN PRN Reason: HYPERGLYCEMIA PER SSI Levothyroxine Sodium (Synthroid) 75 mcg PO QDAC KILEY Mag Hydrox/Al Hydrox/Simeth (Maalox Adv Susp) 30 ml PO Q8H Multivit, Iron, Min #5 (FA (Strovite Forte Caplet) 1 ea PO DAILY Nitroglycerin (Nitrostat) 0.4 mg SL Q5MIN X 3 DOSES PRN PRN Reason: CHEST PAIN Nystatin (Nystop Powder) 1 applic TP TID PRN PRN Reason: excoriation Primidone 50 mg PO BEDTIME Fluticasone/Salmeterol (Advair 250-50 Diskus) 1 puff IH BID KILEY Sodium Bicarbonate 650 mg PO TID Tamsulosin HCl (Flomax) 0.4 mg PO DAILY KILEY ALLERGIES MATT Inhibitors Adverse Reaction (Verified 12/11/16 12:07) Iodinated Contrast- Oral and IV Dye Adverse Reaction (Verified 12/11/16 12:07) NEW PRESCRIPTIONS: NEW MEDICATIONS/MEDICATION CHANGES: INCREASE THE HYDRALAZINE TO 100 MG PO Q 8 HOURS CIPRO 250 MG PO Q 12 HOURS X 5 DAYS CLONIDINE (CATAPRES) 0.2 MG PO BID DISCONTINUE THE MULTIVITAMIN WITH IRON PO DAILY SMOKING: NONSMOKER DISEASE SPECIFIC EDUCATION: KIDNEY DISEASE ANEMIA VENOUS STASIS ULCERS PSEUDOMONAS AERUGINOSA SHELTER MEDICATIONS MEDICATION CHANGES FOLLOW UP LAB REVIEW: 12/18/16 04:43 12/18/16 04:43 12/18/16 04:43: Sodium 137, Potassium 4.4, Chloride 110 H, Carbon Dioxide 20 L, Anion Gap 11.4, BUN 42 H, Creatinine 1.88 H, Estimated GFR (MDRD) 32.00, BUN/ Creatinine Ratio 22.34, Glucose 131 H, Calcium 8.9, Total Bilirubin 0.18, AST 22 , ALT 16, Alkaline Phosphatase 96, Total Protein 6.7, Albumin 1.7 L, Globulin 5.0, Albumin/Globulin Ratio 0.34 12/18/16 04:43: WBC 8.25, RBC 3.22 L, Hgb 8.9 L, Hct 28.0 L, MCV 87.0, MCH 27.6 , MCHC 31.8, RDW Coeff of Vince 14.6, Plt Count 194, Immature Gran % (Auto) 0.6, Neut % (Auto) 74.2, Lymph % (Auto) 12.0, [place] % (Auto) 9.7, Eos % (Auto) 3.0, Baso % (Auto) 0.5, Immature Gran # (Auto) 0.1, Neut # 6.1, Lymph # 1.0, [place] # 0.8, Eos # 0.3, Baso # 0.0 PLAN: DISCHARGE BACK TO [facility] DR. STAUFFER WILL CONTINUE TO FOLLOW THE PATIENT THERE DURING USUAL SHELTER ROUNDS RESUME THE SHELTER MEDICATIONS PER LIST PROVIDED BY THE NURSING STAFF NEW MEDICATIONS/MEDICATION CHANGES: INCREASE THE HYDRALAZINE TO 100 MG PO Q 8 HOURS CIPRO 250 MG PO Q 12 HOURS X 5 DAYS CLONIDINE (CATAPRES) 0.2 MG PO BID DISCONTINUE THE MULTIVITAMIN WITH IRON PO DAILY ACTIVITY: MAY PARTICIPATE IN SHELTER ACTIVITY PROGRAM TOLERATED PT/OT/SPEECH PLEASE EVALUATE AND TREAT INDICATED RESTORATIVE NURSING FOR BED MOBILITY/TRANSFERS, AND TO ALL FOUR EXTREMITIES ROHO CUSHION WHEN UP IN WHEELCHAIR Q SHIFT TO PROMOTE SKIN PROTECTION V/S EVERY SHIFT WEEKLY WEIGHTS DIET: CONSISTENT CARBS, REGULAR TEXTURE AND CONSISTENCY ARGINAID MIXED IN 4-6 OZS FLUID BID TO PROMOTE WOUND HEALING OFFICE SPECIALIST PLEASE CONSULT TO PROVIDE FOR PATIENT'S OPTIMAL NUTRITIONAL NEEDS LABS: CBC WITH DIFFERENTIAL AND CMP IN ONE WEEK, THEN Q 3 MONTHS OR DIRECTED BY ACCU-CHECKS ACHS. COVER WITH SLIDING SCALE/NOVOLOG (INSULIN ASPART) TREATMENTS: WOUND CARE TO BOTH LOWER EXTREMITIES Q DAY SHIFT CLEANSE WITH SOAP AND WATER APPLY SANTYL THEN SALINE MOISTENED GAUZE THEN DRY GAUZE. WRAP WITH DANIELITO APPLY 8 INCH MATT WRAP TO RIGHT AND LEFT LOWER LEGS. WRAP FROM TOES TO JUST BELOW KNEE DAILY TOLERATED EVERY DAY SHIFT ELEVATE LEGS AT HEART LEVEL 30 MIN DAILY OR WHEN SITTING PODUS BOOTS TO BOTH FEET AT ALL TIMES LOW AIR LOSS MATTRESS SUMMARY: THE PATIENT IS CURRENTLY A RESIDENT AT [facility]. SHE AND HER FAMILY DESIRE FOR HER RETURN THERE AT DISCHARGE. SHE IS COMPLETELY DEPENDENT FOR ADL'S AND IS NOT AMBULATORY. HER CURRENT CODE STATUS IS: FULL CODE. THE PATIENT HAS LARGE AREAS TO BOTH POSTERIOR LOWER EXTREMITIES THAT ARE MACERATED. WE HAVE TREATED THE PSEUDOMONAS AERUGINOSA INFECTED WOUNDS WITH A COURSE OF CEFEPIME. THE PATIENT WILL BE CONTINUED ON CIPRO ORALLY AT THE SHELTER FOR ANOTHER 5 DAYS TO COMPLETE THE COURSE OF ANTIBIOTICS. SHE WILL CONTINUE TO SEE [facility] FOR TREATMENT OF HER LEG WOUNDS. MS. RODRIGUEZ RECEIVED TWO UNITS OF PACKED RED CELLS ON 12/12/16 FOR A HGB/HCT OF 6.7 /21.3. SINCE THEN THE H&H VALUES HAVE BEEN LOW BUT WITHIN ACCEPTABLE RANGES. WE WILL CONTINUE TO MONITOR THE VALUES AND HER RENAL STATUS PERIODICALLY AT THE SHELTER. THE FAMILY AND MS. RODRIGUEZ ARE AWARE OF DISCHARGE PLANS FOR TODAY. SHE WILL BE FOLLOWED DURING USUAL SHELTER ROUNDS. ERIC STAUFFER M.D.
[2016-12-18] MEDS: LANTUS SUBCUT SCH (20:41)
[2016-12-18] MEDS: NEURONTIN PO SCH (20:41)
[2016-12-18] MEDS ORDERED: CIPRO ONE (23:17)
[2016-12-18] MEDS: CIPRO PO SCH (23:22)
[2016-12-19 04:50] LABS: BASOPHILS % (AUTO) 0.5 % (0.0-3.0); EOSINOPHILS # (AUTO) 0.3 K/ul (0.0-0.7); EOSINOPHILS % (AUTO) 4.3 % (0.0-7.0); HEMATOCRIT 26.8 % (37.0-47.0); HEMOGLOBIN 8.5 g/dl (12.0-16.0); IMMATURE GRANULOCYTE % (AUTO) 0.3 % (0.0-5.0); LYMPHOCYTES % (AUTO) 15.1 (10.0-50.0); MEAN CORPUSCULAR HEMOGLOBIN 27.4 pg (27.0-31.0); MEAN CORPUSCULAR HGB CONC 31.7 (31.8-35.4); MEAN CORPUSCULAR VOLUME 86.5 fl (81.0-99.0); MONOCYTES # (AUTO) 0.7 K/uL (0.4-2.0); MONOCYTES % (AUTO) 10.7 (0-10); NEUTROPHILS # (AUTO) 4.5 K/ul (2.0-6.9); NEUTROPHILS % (AUTO) 69.1; PLATELET COUNT 182 10^3/uL (140-440); WHITE BLOOD COUNT 6.47 K/ul (4.6-10.2)
[2016-12-19 04:56] VITALS: BP 175/73; TEMP 97.1
[2016-12-19] MEDS: DUONEB NEB SCH (05:18)
[2016-12-19 05:28] LABS: ALBUMIN 1.6 g/dL (3.4-5.0); ALBUMIN/GLOBULIN RATIO 0.37; ANION GAP 7.4; BILIRUBIN,TOTAL 0.28 mg/dL (0.00-1.20); BUN/CREATININE RATIO 22.56; CALCIUM 8.7 mg/dL (8.2-10.2); CREATININE 1.64 mg/dL (0.60-1.30); POTASSIUM 4.4 mmol/L (3.5-5.10); TOTAL PROTEIN 5.9 g/dL (5.8-8.1)
[2016-12-19] MEDS ORDERED: CIPRO ONE (05:46)
[2016-12-19] MEDS: PEPCID PO SCH (05:47)
[2016-12-19] MEDS: SYNTHROID PO SCH (05:47)
[2016-12-19] MEDS: APRESOLINE PO SCH (05:48)
[2016-12-19] MEDS: CIPRO PO SCH (05:49)
[2016-12-19] MEDS ORDERED: SENNA PO SCH (09:00)
[2016-12-19] MEDS ORDERED: CIPRO PO SCH (21:00)
--- NOTE | 2017-01-19 07:48 | PN ---
DATE OF SERVICE: 12/17/16 SUBJECTIVE: The patient was admitted with the bilateral lower extremity cellulitis and acute on chronic renal failure for anemia of below 7. The patient had two unit PRBC. Hgb slowly dropped and today is 8.4. The patient's son is in the room and had a lot of questions and everything been answered. REVIEW OF SYSTEMS: CONSTITUTIONAL: No fever, no chills. HEENT: Normal. ENDOCRINE: No weight gain, no weight loss. CVS: No angina symptoms. No CHF symptoms. No palpitations. No atypical chest pain for CAD. No shortness of breath. No PND, no orthopnea. RESPIRATORY: No cough, no hemoptysis. GI: No nausea, no vomiting. No abdominal pain. : No hematuria. No polyuria. MUSCULOSKELETAL:. No joint swelling. PSYCHIATRIC: Not anxious. No depression. No suicidal thoughts. No homicidal thoughts. SKIN: Intact. No rash. PHYSICAL EXAMINATION: V/S: Blood pressure 159/72, respiratory rate 16, heart rate 75, temperature 98.1 with saturation 97% on the room air. HEENT: Normocephalic, atraumatic. Mucosa dry. Pallor positive. No icterus. NECK: Supple. No JVD, no carotid bruit. No lymphadenopathy. LUNGS: Decreased with basilar crackles. No rales or rhonchi. HEART: S1, S2 normal. No S3. No murmur, gallop or regurgitation. ABDOMEN: Soft, nontender. Bowel sounds active. No rigidity. No rebound or guarding. No CVA tenderness. EXTREMITIES: No clubbing, cyanosis or pedal edema. Bilateral upper extremity edema. Lower extremity bilateral multiple open wounds are present. Tender to touch. MUSCULOSKELETAL: No joint swelling. NEUROLOGIC: Awake, alert, oriented times three. No focal deficit. LYMPHATIC: No lymph nodes palpable. SKIN: Intact. LABS: WBC 6.86, hgb 8.4, hct 26.0, plt count 194, sodium 139, potassium 4.5, chloride 110, bicarb 21, BUN 43, creatinine 1.74. ASSESSMENT: 1. Bilateral lower extremity open wounds, organism pseudomonas 2. Acute on chronic renal failure 3. Anemia, needing the transfusion 4. Coronary artery disease 5. Hypertension 6. Dyslipidemia 7. Congestive hearty failure PLAN: 1. Continue the Cefepime 2. Daily I&O's 3. Bumex 1mg IV push one time 4. Accu-checks with coverage Follow up with the patient in daily rounds. TIME SPENT: More than 35 minutes MTDD
--- NOTE | 2017-01-20 09:50 | PN ---
DATE OF SERVICE: 12/18/16 SUBJECTIVE: The patient was admitted with the bilateral lower extremity venostasis cellulitis organism pseudomonas being treated for it with Cefepime. The patient had anemia for which the patient has to have blood transfusion. Feeling better. BUN and Creatinine has improved. Hgb is steady at 8.4, 8.5 and 8.9. REVIEW OF SYSTEMS: CONSTITUTIONAL: No fever, no chills. HEENT: Normal. ENDOCRINE: No weight gain, no weight loss. CVS: No angina symptoms. No CHF symptoms. No palpitations. No atypical chest pain for CAD. No shortness of breath. No PND, no orthopnea. RESPIRATORY: No cough, no hemoptysis. GI: No nausea, no vomiting. No abdominal pain. : No hematuria. No polyuria. MUSCULOSKELETAL:. No joint swelling. PSYCHIATRIC: Not anxious. No depression. No suicidal thoughts. No homicidal thoughts. SKIN: Intact. No rash. PHYSICAL EXAMINATION: V/S: Blood pressure 165/78, respiratory rate 12, heart rate 75, temperature 98.2. HEENT: Normocephalic, atraumatic. Mucosa dry. Pallor positive. No icterus. NECK: Supple. No JVD, no carotid bruit. No lymphadenopathy. LUNGS: Decreased and clear to auscultation. No rales or rhonchi. HEART: S1, S2 normal. No S3. No murmur, gallop or regurgitation. ABDOMEN: Soft, nontender. Bowel sounds active. No rigidity. No rebound or guarding. No CVA tenderness. EXTREMITIES: No clubbing, cyanosis. Upper extremities bilateral edema present. Lower extremities as explained multiple open wounds are present. MUSCULOSKELETAL: No joint swelling. NEUROLOGIC: Awake, alert, oriented times three. No focal deficit. LYMPHATIC: No lymph nodes palpable. SKIN: Intact. LABS: WBC 8.25, hgb 8.9, hct 28.0, plt count 194, sodium 137, potassium 4.4, chloride 110, bicarb 20, BUN 42, creatinine 1.88 and glucose 131. ASSESSMENT: 1. Bilateral lower extremity multiple open wounds, organism pseudomonas 2. Anemia, needing blood transfusion 3. Venostasis dermatitis with infection 4. Diabetes, status post hypoglycemia 5. Chronic kidney disease 6. Anemia 7. Coronary artery disease 8. Congestive heart failure PLAN: 1. Cipro 250mg twice a day 2. Keep the legs elevated 3. Wet to dry dressing 4. Daily I&O's 5. skilled nursing evaluation and followup 6. Discussed with the family because they wanted to transfer the patient to [place] by personal care as strictly advised that is not right thing to do as patient is still acute and has a lot of multiple problems, travels for 4-5 hours can make a lot of things worse and family withdrew their plan at this time and agreeable to transfer back to the [facility]. Will be discharged tomorrow morning. TIME SPENT: More than 30 minutes RICARDA
--- NOTE | 2017-01-27 10:28 | DS ---
DATE OF SERVICE: 12/19/16 FINAL DIAGNOSIS: 1. Anemia (2 units PRBC's 12/12/18) 2. Renal failure 3. Bilateral lower extremity venous stasis wounds 4. Bilateral wound infections-pseudomonas aeruginosa 5. CAD 6. Peripheral vascular disease 7. Hypertension 8. Dyslipidemia 9. Diabetes Mellitus, type 2 10.Thyroid disease 11.Asthma 12.Chronic kidney disease 13.Obestiy (BMI 44.8) 14.Generlaized muscle weakness 15.Gait abnormality 16.Urinary retention 17.Dyslipidemia 18.Arthropathy 19. Automated internal cardiac pacemaker/defibrillator LAST VITALS: Temperature 97.5, pulse 86, respiratory rate 20, blood pressure 158/76 and pulse ox 97%. DISCHARGE INSTRUCTIONS: Discharge back to [facility]. Dr. Harrison will continue to follow the patient there during usual senior care rounds. Resume the senior care medications as per list provided by the nursing staff. CBC with differential and CMP in one week, then Q 3 months or as directed by MD. Accu-checks ACHS. Cover with sliding scale/Novolog (insulin Aspart). Wound Care both lower extremities Q day shift. Cleanse with soap and water apply Santyl then saline moistened gauze then dry gauze, wrap with Bailee. Apply 8 inch matt wrap to right and left lower legs. Wrap from toes to just below knee daily as tolerated every day shift. Elevate legs at heart level 30minutes daily or when sitting. Podus boots to both feet at all times. Low air loss mattress. MEDICATIONS AT DISCHARGE: [place] 7.5-325 one tablet PO three times a day Norvasc 10mg PO daily Aspirin 81mg PO daily Calmoseptine one application TP Q 8 hours PRN Calcitriol 0.5mcg PO daily Coreg 25mg PO twice a day Zyrtec 10mg PO dialy Catapres 0.2mg PO twice a day Colace 100mg PO Q 12 hours PRN Pepcid 20mg PO twice a day Ferrous sulfate 324mg PO twice a day Folic acid 1mg Po daily Neurontin 300mg PO bedtime Apresoline 100mg PO Q 8 hours Cipro 250mg Q 12 hours times five days Lantus 10 units SUBCUT bedtime Humalog 2-20 unit subcut PRN Synthroid 75mcg PO QDAC Maalox Adv Susp 30ml PO Q 8 hours Strovite Forte Caplet one each PO daily Nitrostat 0.4mg SL Q 5 minute times three doses PRN Nystop one application TP three times a day PRN Primidone 50mg PO bedtime Advair 250-50 diskus one puff IH twice a day Sodium Bicarbonate 650mg PO three times a day Flomax 0.4mg PO daily ALLERGIES: MATT Inhibitors Iodinated contrast NEW PRESCRIPTIONS: Increase Hydralazine to 100mg PO Q 8 hours Cipro 250mg PO Q 12 hours x5 day s Clonidine 0.2mg PO twice a day Discontinue the Multivitamin with Iron PO daily DIET INSTRUCTIONS: Consistent carbs, regular texture and consistency Arginaid mixed in 4-6 ounces fluid twice a day to promote wound healing. Prep Cook please consult to provide for patient's optimal nutritional needs. ACTIVITY: May participate in senior care activity program as tolerated PT/OT/Speech please evaluate and treat as indicated Restorative nursing for bed mobility/transfers, and to all four extremities ROHO cushion when up in wheelchair Q shirt to promote skin protection Vital signs every shift Weekly weights SMOKING: Nonsmoker DISEASE SPECIFIC EDUCATION: Kidney disease Anemia Venous stasis ulcers Pseudomonas Aeruginosa detention Medication Medication changes Followup HOSPITAL COURSE: The patient was admitted to the hospital from the senior care after low hgb. Hgb was 7.3 at the beginning and went down to 6.7. The patient has history of anemia. Type and cross match and blood transfusion of two units was given. Hgb came up to 9.09.1. Lower extremity multiple wounds were present in the both lower extremity. Wound culture was done. Started on the Vancomycin and Cefepime. Culture grew pseudomonas, only Cefepime was continued. Daily I&O's was done. Gradually the patient was started having the swelling all over the body. BUN and creatinine was stable. The patient's family wanted to transfer the patient to the [place] were she was initially admitted. Talked to the physician who was taking care of the patient there. As the patient was clinically stable and there was no need for the higher center we did not transfer the patient because as it was not appropriate. Discussed with the patient's son who was available for the discussed and he is also power of attorney general. Guarded prognosis been discussed and verbalized understanding. The patient stay was lengthy because of the multiple medical problems and responsiveness to the treatment. Gradually the patient's blood pressure was getting somewhat better and at that time the patient being discharged home to the senior care. She will be monitored there. Wound Care consultation being obtained at the senior care. TIME SPENT: MORE THAN 60 MINUTES RICARDA
== END 2016-12-19 08:45 | disposition short-term general hospital (02) | DRG 812 ==
LOC: ED 11:43 → MEDSURG B 14:58 → OBSVTOIN 14:58
PROVIDERS: ADMIT Emergency Medicine; ATTEND Emergency Medicine
PROC: 30233N1 Transfusion of Nonautologous Red Blood Cells into Peripheral Vein, Percutaneous Approach (ICD-10-PCS; principal; 2016-12-12)
PROC: 30233N1 Transfusion of Nonautologous Red Blood Cells into Peripheral Vein, Percutaneous Approach (ICD-10-PCS; 2016-12-12)
DX: D64.9 Anemia, unspecified (principal); N17.9 Acute kidney failure, unspecified; L03.116 Cellulitis of left lower limb; L03.115 Cellulitis of right lower limb; Z68.41 Body mass index [BMI] 40.0-44.9, adult; S81.802A Unspecified open wound, left lower leg, initial encounter; S81.801A Unspecified open wound, right lower leg, initial encounter; B96.5 Pseudomonas (aeruginosa) (mallei) (pseudomallei) as the cause of diseases classified elsewhere; I87.8 Other specified disorders of veins; E03.9 Hypothyroidism, unspecified; I25.10 Atherosclerotic heart disease of native coronary artery without angina pectoris; I73.9 Peripheral vascular disease, unspecified; I10 Essential (primary) hypertension; J45.909 Unspecified asthma, uncomplicated; I12.9 Hypertensive chronic kidney disease with stage 1 through stage 4 chronic kidney disease, or unspecified chronic kidney disease; E11.22 Type 2 diabetes mellitus with diabetic chronic kidney disease; N18.9 Chronic kidney disease, unspecified; I50.9 Heart failure, unspecified; E66.9 Obesity, unspecified; M62.81 Muscle weakness (generalized); R26.9 Unspecified abnormalities of gait and mobility; R33.9 Retention of urine, unspecified; E78.5 Hyperlipidemia, unspecified; M12.9 Arthropathy, unspecified; T38.3X1A Poisoning by insulin and oral hypoglycemic [antidiabetic] drugs, accidental (unintentional), initial encounter; E11.649 Type 2 diabetes mellitus with hypoglycemia without coma; Y92.230 Patient room in hospital as the place of occurrence of the external cause; Z95.810 Presence of automatic (implantable) cardiac defibrillator; Z79.4 Long term (current) use of insulin; Z79.899 Other long term (current) drug therapy
CPT/HCPCS: 36415; 36430; 80053; 81001; 82550; 82607; 82728; 82746; 82962; 83540; 83550; 83605; 84145; 84439; 84443; 84466; 84484; 85014; 85018; 85025; 85045; 85610; 85730; 86850; 86900; 86922; 87040; 87070; 87081; 87086; 87186; 93005; 93010; 94640; 99284

== ENCOUNTER 2016-12-19 08:53 | Outpatient (CLI) | END 2016-12-19 09:00 | disposition short-term general hospital (02) | LOC: AMBL 08:53 | PROVIDERS: ATTEND Emergency Medicine | DX: I87.8 Other specified disorders of veins (principal); E66.9 Obesity, unspecified; R60.0 Localized edema; Z96.0 Presence of urogenital implants; Z74.01 Bed confinement status ==

== ENCOUNTER 2016-12-23 21:17 | Outpatient (CLI) | END 2016-12-23 21:18 | disposition home or self-care (01) | LOC: AMBL 21:17 | PROVIDERS: ATTEND Family Medicine | DX: R41.82 Altered mental status, unspecified (principal); R60.9 Edema, unspecified; R53.1 Weakness; N19 Unspecified kidney failure; I50.9 Heart failure, unspecified; E11.9 Type 2 diabetes mellitus without complications; Z95.0 Presence of cardiac pacemaker ==

== ENCOUNTER 2017-04-08 19:04 | Outpatient (CLI) | END 2017-04-08 19:05 | disposition home or self-care (01) | LOC: AMBL 19:04 | PROVIDERS: ATTEND Family Medicine | DX: R88.8 Abnormal findings in other body fluids and substances (principal); R73.9 Hyperglycemia, unspecified ==